=== PATIENT | female | born 1965 | race Caucasian/White ===

== ENCOUNTER 2016-09-12 10:49 | Day surgery (SDC) | payer MEDICAID ==
[~2016-09-12] VITALS: Ht 157.5 cm; Wt 74.5 kg
[2016-09-12] MEDS ORDERED: ADDERALL 20 MG20 M1 PO (11:43)
[2016-09-12] MEDS ORDERED: ADDERALL 15 MG15 MG PO (11:44)
[2016-09-12] MEDS ORDERED: LAMICTAL200 MG PO (11:44)
[2016-09-12] MEDS ORDERED: TOPAMAX200 MG PO (11:45)
[2016-09-12] MEDS ORDERED: TOPAMAX100 MG PO (11:45)
[2016-09-12] MEDS ORDERED: HYDROXYZINE HCL50 MG PO (11:45)
[2016-09-12] MEDS ORDERED: VALIUM10 MG PO (11:46)
[2016-09-12] MEDS ORDERED: OMEPRAZOLE20 M1 PO (11:47)
[2016-09-12] MEDS ORDERED: ALLER-CHLOR4 MG PO (11:48)
[2016-09-12] MEDS ORDERED: DYAZIDE 37.5/251 CAP PO (11:50)
[2016-09-12] MEDS ORDERED: HYDROCODON-ACE1 EAC7 PO (11:51)
[2016-09-12] MEDS ORDERED: SOMA350 MG PO (11:52)
[2016-09-12 12:11] VITALS: BP 92/58; Ht 157.5 cm; Wt 74.5 kg
[2016-09-12 12:28] LABS: BASOPHILS 0.3 % (0.0-2.0); EOSINOPHILS 2.8 % (0-7); HEMATOCRIT 38.7 % (36.0-48.0); HEMOGLOBIN 13.4 g/dL (12-16); LYMPHOCYTES 42.2 % (15-50); MCH 29.9 pg (26.0-34.0); MCHC 34.6 g/dL (31.0-37.0); MCV 86.4 fL (80.0-100.0); MEAN PLATELET VOLUME 9.4 fL (7.4-10.4); MONOCYTES 5.9 % (2-11); NEUTROPHILS 48.8 % (40-80); PLATELET COUNT 148 10x3/uL (130-400); RBC 4.48 10x6/uL (4.00-5.40); RDW 13.3 % (11.5-14.5); WBC 3.9 10x3/uL (4.8-10.8)
[2016-09-12 12:44] LABS: CALC OSMOLALITY 285 mosm/kg (275-300); CALCIUM 8.6 mg/dL (8.5-10.1); CARBON DIOXIDE 24.7 mmol/L (21.0-32.0); CHLORIDE - SERUM 107 mmol/L (98-107); CREATININE - SERUM 0.8 mg/dL (0.6-1.3); GLUCOSE 117 mg/dL (74-106); POTASSIUM - SERUM 3.5 mmol/L (3.5-5.1); SODIUM 142 mmol/L (136-145); UREA NITROGEN 18 mg/dL (7-18); eGFR NON AFRICAN AMERICAN 81 mL/min (90-120)
--- NOTE | 2016-09-12 14:31 | NUR ---
1405- IV D/C'D, PT TOLERATED. CATHETER INTACT. 1420- DISCHARGE INSTRUCTIONS COMPLETED, PT VERBALIZES UNDERSTANDING. PAPERWORK SIGNED 1425- DISCHARGED WITH [facility] VIA WHEELCHAIR
--- NOTE | 2016-09-17 10:50 | OP ---
PATIENT NAME: PRABHU BRUNO MEDICAL RECORD: [id number] :67 LOCATION:[facility] ADMISSION DATE: SURGEON: JENNIFER WALTON DO DATE OF OPERATION: 09/12/2016 PROCEDURE: EGD with biopsies. SCOPE: Fontself video gastroscope. MEDICATIONS: Propofol 200 mg IV per anesthesia. INDICATIONS FOR PROCEDURE: Epigastric abdominal pain, dysphagia, nausea, pain provoked by eating. FINDINGS: Informed consent was given. The patient was made comfortable with the above medication. After reaching an adequate level of sedation by slow IV push, the patient was placed on her left side. The endoscope was then advanced under direct visualization through the mouth to the second portion of the duodenum. In the proximal third of the esophagus, there was an approximately 8 mm size patch of ectopic gastric mucosa. Biopsies were performed to confirm this diagnosis. The middle third of the esophagus appeared normal. The distal third of the esophagus appeared normal, but just superior to the GE junction. There was some mucosa that had a nodular appearance. Two cold forcep biopsies were performed to send for histology. At the GE junction, there was evidence of mild LA class A reflux induced esophagitis. The scope was advanced into the stomach and retroflexed to view the cardia, where a small sliding hiatal hernia was present. In the fundus, there was evidence of a single layer erosion which appeared like it had oozed blood recently. The body of the stomach appeared normal as well as the antrum and prepyloric region. The scope was advanced through the pylorus into the duodenum where there was some erythema present in the duodenum consistent with duodenitis. Random biopsies were performed in the bulb and second portion of the duodenum. Scope was then withdrawn back into the stomach where random gastric biopsies were taken to rule out H. pylori and to sent for histology. Scope was then withdrawn from the patient. The patient tolerated the procedure well and there were no complications. ESTIMATED BLOOD LOSS: Less than 5 cc. IMPRESSION: 1. 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 2. Nodular mucosa just superior to the gastroesophageal junction, which was biopsied. 3. Reflux esophagitis grade A. 4. Cecal gastric erosions. 5. Duodenitis biopsy. PLAN AND RECOMMENDATIONS: 1. Discharge home when recovery parameters are met. 2. Continue current medications. 3. Gastroesophageal reflux diet and reflux precautions. 4. Schedule a barium esophagram regarding ongoing dysphagia as well as the gastric emptying study regarding the pain with eating and nausea in the setting of diabetes. 5. Await biopsy specimen results and followup in the clinic as needed. OPERATIVE REPORT [id number] PRABHU BRUNO TRANSINT:[id number] Voice Confirmation ID: [id number] DOCUMENT ID: [id number] JENNIFER WALTON DO at 1050 CC: [id number] DICTATION DATE: 09/12/16 1309 EYELET ROW MARKER: 09/12/16 1508 [facility] 09/12/[address] [facility] [address] [place] [address]
== END 2016-09-12 14:25 | disposition home or self-care (01) ==
LOC: D.OPS 10:49
PROVIDERS: Anesthesiology
DX: R10.13 Epigastric pain (principal); R13.10 Dysphagia, unspecified; R11.0 Nausea; J44.9 Chronic obstructive pulmonary disease, unspecified; K21.9 Gastro-esophageal reflux disease without esophagitis; G47.30 Sleep apnea, unspecified; E11.9 Type 2 diabetes mellitus without complications; I10 Essential (primary) hypertension

== ENCOUNTER 2017-08-25 12:58 | Day surgery (SDC) | payer MEDICAID ==
[~2017-08-25] VITALS: Ht 157.5 cm; Wt 84.1 kg
--- NOTE | ~2017-08-25 | OP ---
PATIENT NAME: PRABHU BRUNO MEDICAL RECORD: [id number] :67 LOCATION:[facility] ADMISSION DATE: SURGEON: JENNIFER WALTON DO DATE OF OPERATION: 08/25/2017 PROCEDURE: EGD with biopsies. INDICATIONS FOR PROCEDURE: Epigastric pain, dysphagia, nausea, altered bowel function. SCOPE: Olympus video gastroscope. MEDICATIONS: Propofol IV per anesthesia. ESTIMATED BLOOD LOSS: Minimal. COMPLICATIONS: None. FINDINGS: Informed consent was given. The patient was made comfortable with the above medication. After reaching an adequate level of sedation by slow IV push, the patient was placed on her left side. The endoscope was advanced under direct visualization through the mouth to the second portion of the duodenum. In the proximal third of the esophagus, there was a small patch of ectopic gastric mucosa visualized. This was previously biopsied within the past year. The middle and distal thirds of the esophagus appeared normal. At the GE junction, there was evidence of mild, LA class A reflux-induced esophagitis. The endoscope was advanced beyond the GE junction and retroflexed to view the cardia, which appeared normal. The fundus was normal other than the presence of a few fundic gland type benign polyps. In the body and antrum of the stomach, there were a few superficial erosions which were oozing some blood upon washing. Random biopsies were taken in the stomach to rule out H. pylori and to submit for histology. The endoscope was advanced beyond the pylorus into the duodenum where the bulb and second portion of the duodenum appeared normal. The endoscope was then withdrawn from the patient. The patient tolerated the procedure well and there were no complications. IMPRESSION: 1. Ectopic gastric mucosa in the proximal third of the esophagus. 2. LA class A reflux-induced esophagitis. 3. Gastritis and gastric erosions. 4. Benign appearing fundic gland gastric polyps. PLAN AND RECOMMENDATIONS: 1. Discharge home when recovery parameters are met. 2. Follow up biopsy specimen results. 3. Continue current medications including PPI in the a.m. and antihistamine block in the evening. 4. GERD diet and reflux precautions. 5. Barium esophagram regarding ongoing dysphagia. 6. If not already completed, consider gastric emptying study regarding the abdominal pain and nausea. 7. Consider manometry study pending results of Barium swallow. TRANSINT:[id number] Voice Confirmation ID: [id number] DOCUMENT ID: [id number] OPERATIVE REPORT [id number] PRABHU BRUNO NATHAN A DO at 1135 CC: [id number] DICTATION DATE: 08/25/17 1507 REGISTERED APPRAISER: 08/25/17 1531 [facility] 08/25/17 [place] [id number] [place] [id number]
[~2017-08-25 12:58] MED LIST: ADDERALL 15 MG15 MG PO; ADDERALL 20 MG20 M1 PO; ALLER-CHLOR4 MG PO; DYAZIDE 37.5/251 CAP PO; HYDROCODON-ACE1 EAC7 PO; HYDROXYZINE HCL50 MG PO; LAMICTAL200 MG PO; OMEPRAZOLE20 M1 PO; SOMA350 MG PO; TOPAMAX100 MG PO; TOPAMAX200 MG PO; VALIUM10 MG PO
[2017-08-25] MEDS ORDERED: FUROSEMIDE20 MG PO (13:17)
[2017-08-25] MEDS ORDERED: BENZONATATE200 MG (13:18)
[2017-08-25] MEDS ORDERED: FORTAMET1000 MG/BO PO (13:18)
[2017-08-25] MEDS ORDERED: PROZAC20 MG PO (13:19)
[2017-08-25] MEDS ORDERED: ZANTAC150 MG (13:19)
[2017-08-25 13:32] VITALS: BP 142/83; Ht 157.5 cm; Wt 84.1 kg
[2017-08-25 13:37] LABS: HEMOGLOBIN 14.1 g/dL (12-16); MCH 28.5 pg (26.0-34.0); MCHC 34.4 g/dL (31.0-37.0); MEAN PLATELET VOLUME 9.1 fL (7.4-10.4); RBC 4.94 10x6/uL (4.00-5.40); RDW 13.5 % (11.5-14.5); WBC 5.3 10x3/uL (4.8-10.8)
[2017-08-25 13:38] LABS: ANION GAP 14.6 mmol/L (8-16); CALCIUM 8.5 mg/dL (8.5-10.1); CARBON DIOXIDE 21.4 mmol/L (21.0-32.0); CREATININE - SERUM 0.9 mg/dL (0.6-1.3)
== END 2017-08-25 15:55 | disposition home or self-care (01) ==
LOC: D.OPS 12:58
PROVIDERS: Anesthesiology
DX: R10.13 Epigastric pain (principal); R13.10 Dysphagia, unspecified; K21.0 Gastro-esophageal reflux disease with esophagitis; K29.70 Gastritis, unspecified, without bleeding; R19.4 Change in bowel habit; Z01.812 Encounter for preprocedural laboratory examination; E11.9 Type 2 diabetes mellitus without complications

== ENCOUNTER → 2017-08-27 10:26 | Outpatient (CLI) | payer MEDICAID ==
[2017-08-25 13:32] VITALS: BMI 33.9
[~2017-08-27 10:26] MED LIST changes: +BENZONATATE200 MG; +FORTAMET1000 MG/BO PO; +FUROSEMIDE20 MG PO; +PROZAC20 MG PO; +ZANTAC150 MG
== END | disposition home or self-care (01) ==
LOC: D.RAD 10:26
DX: R13.10 Dysphagia, unspecified (principal)

== ENCOUNTER 2018-04-01 09:02 | Day surgery (SDC) | payer MEDICAID ==
[~2018-04-01] VITALS: Ht 157.5 cm; Wt 73.6 kg
--- NOTE | ~2018-04-01 | OP ---
PATIENT NAME: PRABHU BRUNO MEDICAL RECORD: [id number] :67 LOCATION:[facility] ADMISSION DATE: SURGEON: JENNIFER WALTON DO DATE OF OPERATION: 04/01/2018 PROCEDURE: EGD with biopsies. INDICATIONS FOR PROCEDURE: Pain in throat and epigastric abdominal pain. SCOPE: Olympus video gastroscope. MEDICATIONS: Propofol IV per anesthesia. ESTIMATED BLOOD LOSS: None. COMPLICATIONS: None. FINDINGS: Informed consent was given. The patient was made comfortable with the above medication. After reaching an adequate level of sedation by slow IV push, the patient was placed on her left side. The endoscope was advanced under direct visualization through the mouth, to the second portion of the duodenum. The upper, middle, and lower thirds of the esophagus was normal other than some ectopic gastric mucosa in the proximal third of the esophagus. At the GE junction, there was some LA class A reflux-induced esophagitis noted. There were no ulcers or other abnormalities. The endoscope was advanced beyond the GE junction into the stomach and retroflexed view the cardia, where a very small sliding hiatal hernia was present. Throughout the fundus and body of the stomach, there were a few benign appearing fundic gland type gastric polyps present. No biopsies were taken on today's examination. In the antrum and prepyloric region, there was some erythema and granularity and some friability of the mucosa consistent with gastritis. The endoscope was advanced beyond the pylorus into the duodenum where the bulb, first portion, and second portion of the duodenum appeared normal. The endoscope was then withdrawn from the patient. The patient tolerated the procedure well and there were no complications. IMPRESSION: 1. Ectopic gastric mucosa in the proximal esophagus. 2. LA class A reflux-induced esophagitis. 3. Small sliding hiatal hernia. 4. Gastritis. 5. Benign appearing fundic gland polyps. PLAN AND RECOMMENDATIONS: 1. Discharge home when recovery parameters are met. 2. Continue current medications including Nexium 40 mg daily in the a.m. and Zantac 150-300 mg in the p.m. 3. Add Carafate suspension 1 gram/10 mL p.o. t.i.d. to see if this helps symptoms. 4. If this does not improve symptoms, can consider Kothari study or pH impedance study to confirm continued reflux and if there is continued reflux in spite of maximum medical therapy, can consider referral for surgical opinion of antireflux procedure. TRANSINT:[id number] Voice Confirmation ID: [id number] DOCUMENT ID: [id number] OPERATIVE REPORT [id number] PRABHU BRUNO NATHAN A DO at 1300 CC: [id number] DICTATION DATE: 04/01/18 1147 PHLEBOTOMY DIRECTOR: 04/01/18 1203 [facility] [place] [id number] [place] [id number]
[2018-04-01 09:22] LABS: HEMATOCRIT 39.2 % (36.0-48.0); HEMOGLOBIN 13.7 g/dL (12-16); MCH 29.1 pg (26.0-34.0); MCHC 34.9 g/dL (31.0-37.0); MCV 83.4 fL (80.0-100.0); MEAN PLATELET VOLUME 8.9 fL (7.4-10.4); RBC 4.7 10x6/uL (4.00-5.40); RDW 13.4 % (11.5-14.5)
[2018-04-01 09:32] LABS: CALC OSMOLALITY 286 mosm/kg (275-300); CALCIUM 8.9 mg/dL (8.5-10.1); CARBON DIOXIDE 24.6 mmol/L (21.0-32.0); CHLORIDE - SERUM 106 mmol/L (98-107); CREATININE - SERUM 0.8 mg/dL (0.6-1.3); GLUCOSE 276 mg/dL (74-106); POTASSIUM - SERUM 3.9 mmol/L (3.5-5.1); SODIUM 139 mmol/L (136-145); UREA NITROGEN 11 mg/dL (7-18); eGFR NON AFRICAN AMERICAN 80 mL/min (90-120)
[2018-04-01] MEDS ORDERED: SYMBICORT 16010.2 GM INH (10:18)
[2018-04-01] MEDS ORDERED: CYCLOBENZAPRINE10 MG PO (10:19)
[2018-04-01] MEDS ORDERED: FLUTICASONE PRO16 GM (10:20)
[2018-04-01] MEDS ORDERED: NEXIUM20 MG (10:20)
[2018-04-01 10:35] VITALS: Ht 157.5 cm; Wt 73.6 kg
== END 2018-04-01 13:03 | disposition home or self-care (01) ==
LOC: D.OPS 09:02
PROVIDERS: Anesthesiology
DX: K21.0 Gastro-esophageal reflux disease with esophagitis (principal); K44.9 Diaphragmatic hernia without obstruction or gangrene; K29.70 Gastritis, unspecified, without bleeding; K31.7 Polyp of stomach and duodenum; Z01.812 Encounter for preprocedural laboratory examination

== ENCOUNTER 2018-05-14 09:27 | Outpatient (CLI) | payer MEDICAID ==
[~2018-05-14 09:27] MED LIST changes: +CYCLOBENZAPRINE10 MG PO; +FLUTICASONE PRO16 GM; +NEXIUM20 MG; +SYMBICORT 16010.2 GM INH
== END 2018-05-14 11:20 ==
LOC: D.OPS 09:27
PROVIDERS: Orthopaedic Surgery
DX: K21.9 Gastro-esophageal reflux disease without esophagitis (principal); Z01.812 Encounter for preprocedural laboratory examination

== ENCOUNTER → 2018-07-01 19:10 | Outpatient (CLI) | payer MEDICAID ==
[~2018-07-01 19:10] MED LIST changes: -BENZONATATE200 MG; +BUSPAR10 MG PO; +LAMICTAL100 MG PO; -LAMICTAL200 MG PO; +TESSALON PERLE100 MG PO; -VALIUM10 MG PO; +VALIUM5 MG PO; +VISTARIL50 MG PO
== END | disposition home or self-care (01) ==
LOC: D.LABREF 19:10
DX: R31.9 Hematuria, unspecified (principal)

== ENCOUNTER → 2018-07-08 13:37 | Outpatient (CLI) | payer MEDICAID | END | disposition home or self-care (01) | LOC: D.CT 13:37 | DX: R31.21 Asymptomatic microscopic hematuria (principal) ==

== ENCOUNTER 2018-07-23 05:53 | Day surgery (SDC) | payer MEDICAID ==
[2018-07-21 16:02] LABS: BASOPHILS 0.2 % (0-2); EOSINOPHILS 2.6 % (0-7); HEMATOCRIT 43.5 % (36.0-48.0); HEMOGLOBIN 15.7 g/dL (12-16); IMMATURE GRANULOCYTES 0.1 % (0-5); LYMPHOCYTES 27.1 % (15-50); MCH 29.6 pg (26.0-34.0); MCHC 36.1 g/dL (31.0-37.0); MCV 81.9 fL (80.0-100.0); MEAN PLATELET VOLUME 9.6 fL (7.4-10.4); MONOCYTES 5.3 % (2-11); NEUTROPHILS 64.7 % (40-80); RBC 5.31 10x6/uL (4.00-5.40); RDW 13.3 % (11.5-14.5); WBC 8.2 10x3/uL (4.8-10.8)
[2018-07-21 16:03] LABS: PLATELET COUNT 182 10x3/uL (130-400)
[2018-07-21 16:30] LABS: APTT 26.5 SECONDS (22.8-39.4); INR 1.04 (0.85-1.17); PROTIME 13.1 SECONDS (11.6-15.0)
[2018-07-22 08:31] LABS: CALC OSMOLALITY 292 mosm/kg (275-300); CALCIUM 8.7 mg/dL (8.5-10.1); CARBON DIOXIDE 23.4 mmol/L (21.0-32.0); CHLORIDE - SERUM 104 mmol/L (98-107); CREATININE - SERUM 0.8 mg/dL (0.6-1.3); POTASSIUM - SERUM 4.1 mmol/L (3.5-5.1); SODIUM 139 mmol/L (136-145); UREA NITROGEN 11 mg/dL (7-18); eGFR NON AFRICAN AMERICAN 80 mL/min (90-120)
[2018-07-22 08:34] LABS: GLUCOSE 393 mg/dL (74-106)
[~2018-07-23] VITALS: Ht 157.5 cm; Wt 74.8 kg
--- NOTE | 2018-07-23 06:15 | NUR ---
FSBS 431. ANESTHESIA CALLED AND LAB ORDERED TO CONFIRM BS.
--- NOTE | 2018-07-23 06:30 | NUR ---
BLOOD SUGAR PER LAB 461.
[2018-07-23 06:55] VITALS: BP 130/75; Ht 157.5 cm; Wt 74.8 kg
--- NOTE | 2018-07-23 07:26 | NUR ---
HUMULIN 10 UNITS IV ADMINISTERED PER ORDERS.
--- NOTE | 2018-07-23 07:50 | NUR ---
FSBS 398 AFTER INSULIN.
--- NOTE | 2018-07-23 09:00 | NUR ---
REC'D FROM SURGERY. FAMILY AT BEDSIDE. WANTING TO URINATE HOWEVER EXPLAINED SHE NEEDS TO HOLD THE RIMSO FOR 15 MINUTES. VERBALIZED UNDERSTANDING. ICE WATER BROUGHT TO PT. ENCOURAGING TO TURN FROM SIDE TO SIDE.
--- NOTE | 2018-07-23 09:30 | NUR ---
FL TRAY SERVED. AMBULATED TO BATHROOM AND VOIDED WITHOUT DIFFICULTY. FAMILY AT BEDSIDE.
--- NOTE | 2018-07-23 09:42 | OP ---
PATIENT NAME: PRABHU BRUNO MEDICAL RECORD: [id number] :69 LOCATION:D.OPS ADMISSION DATE: SURGEON: IVETTE PAZ MD DATE OF OPERATION: 07/23/2018 SURGEON: Ivette Paz MD ANESTHESIA: TIVA by Panfilo Bolaños CRNA DIAGNOSES: Microscopic hematuria, interstitial cystitis. PROCEDURES: Cystoscopy, hydrodistention of the bladder, intravesical Rimso instillation. FINDINGS: Single ureteral orifices bilaterally. No mesh graft erosion, no bladder tumors. Diffusely inflamed bladder. SPECIMENS: None. BLOOD LOSS: None. CLINICAL HISTORY: This is a 53-year-old female, G3, P3, A0 who had a pubovaginal sling placed [address] Nev[address]. She was later informed that this was a Luis [employer] Luis [employer] mesh sling and she initially saw me to have this sling removed. She does have a history of bipolar disorder as well as attention deficit disorder. She has attempted to kill herself with 3 suicide attempts, which were unsuccessful. She also has a history of cervical cancer treated by LEEP and hysterectomy in 2004. She also has developed recurrent vaginal bleeding recently and her industrial economics professor is investigating this. She has urinary frequency and urge incontinence. I examined her in the office with the speculum, I did not see any graft extrusion into the vagina. The anterior vaginal wall was intact. The urinalysis was positive for glucose. There was also trace microscopic hematuria. She had a full workup for this. This included a CT scan of the abdomen and pelvis. This shows a left nonobstructive 3-mm renal stone. No renal masses or hydronephrosis was seen. She had a urine cytology, which showed no tumor cells. Her symptoms of frequency and bladder and pelvic pain are suggestive of interstitial cystitis as well as glycosuria from her uncontrolled diabetes. Today, she is having cystoscopy. If we find bladder inflammation consistent with interstitial cystitis, then she will have hydrodistention of the bladder and placement of intravesical Rimso. SHE IS ALLERGIC TO CLARITIN, GEODON, WELLBUTRIN, RITALIN, LIPITOR, GABAPENTIN, SKELAXIN, ACETAMINOPHEN, BUPROPION, BUTABARBITAL AND CAFFEINE. She was given Ancef urgent care nurse practitioner to the OR. DESCRIPTION OF PROCEDURE: The patient was given IV sedation. She was then placed in the dorsal lithotomy position and prepped and draped. She has a urethral stenosis which made placement of a 21-Malagasy scope difficult. I used sounds to dilate her to 20-Malagasy. Then, we used a 17-Malagasy cystoscope for visualization with a 30-degree lens. No graft erosion was seen at all. She has diffuse bladder inflammation consistent with interstitial cystitis. The bladder was then filled to 500 mL for hydrodistention. This was held for about a minute and then the bladder was completely emptied through the cystoscope sheath. The scope was then removed. We introduced a 16-Malagasy red rubber catheter and instilled 50 mL of intravesical Rimso solution. Once the medication was in the bladder, the catheter was removed, leaving the medication in the bladder. She OPERATIVE REPORT [id number] PRABHU BRUNO will hold it for 15 minutes and then void it out. She will be seen in followup in 2 weeks' time for repeat Rimso instillation if needed. TRANSINT:[id number] Voice Confirmation ID: [id number] DOCUMENT ID: [id number] IVETTE PAZ MD at 0942 CC: [id number] DICTATION DATE: 07/23/18900 BUSINESS OFFICE MANAGER: 07/23/18 0936 [facility] [address] [place] [address]
--- NOTE | 2018-07-23 10:00 | NUR ---
TOLERATED FL TRAY. VOIDING WITHOUR DIFFICULTY. IV DC'D WITH CATHETER INTACT.
--- NOTE | 2018-07-23 10:05 | NUR ---
WRITTEN AND VERBAL DC INST. GIVEN TO PT. VERBALIZED UNDERSTANDING.
--- NOTE | 2018-07-23 10:30 | NUR ---
DC'D HOME WITH FAMILY VIA PRIVATE VEHICLE. TAKEN TO VEHICLE VIA WC. STABLE AT TIME OF DC.
== END 2018-07-23 10:30 | disposition home or self-care (01) ==
LOC: D.OPS 05:53 → D.PAN 07:30 → D.OPS 07:30 → D.PAN 08:10 → D.OPS 08:35
PROVIDERS: Anesthesiology
DX: R31.29 Other microscopic hematuria (principal); N30.11 Interstitial cystitis (chronic) with hematuria; N20.0 Calculus of kidney; R81 Glycosuria; E11.65 Type 2 diabetes mellitus with hyperglycemia; Z88.6 Allergy status to analgesic agent; Z88.8 Allergy status to other drugs, medicaments and biological substances; Z01.812 Encounter for preprocedural laboratory examination

== ENCOUNTER 2018-08-11 16:13 | Emergency (ER) | payer MEDICAID ==
[~2018-08-11] VITALS: Ht 157.5 cm; Wt 72.3 kg
[2018-08-11 16:16] VITALS: Ht 157.5 cm; Wt 72.3 kg
[2018-08-11 16:57] LABS: BASOPHILS 0.1 % (0-2); EOSINOPHILS 2.5 % (0-7); HEMATOCRIT 45.4 % (36.0-48.0); HEMOGLOBIN 16.3 g/dL (12-16); IMMATURE GRANULOCYTES 0.1 % (0-5); LYMPHOCYTES 28.9 % (15-50); MCH 29.9 pg (26.0-34.0); MCHC 35.9 g/dL (31.0-37.0); MCV 83.2 fL (80.0-100.0); MEAN PLATELET VOLUME 9.6 fL (7.4-10.4); MONOCYTES 4.2 % (2-11); NEUTROPHILS 64.2 % (40-80); PLATELET COUNT 178 10x3/uL (130-400); RBC 5.46 10x6/uL (4.00-5.40); RDW 13.1 % (11.5-14.5)
[2018-08-11 17:14] LABS: ANION GAP 13.5 mmol/L (8-16); CALCIUM 9.4 mg/dL (8.5-10.1); CARBON DIOXIDE 26.4 mmol/L (21.0-32.0); POTASSIUM - SERUM 3.9 mmol/L (3.5-5.1)
[2018-08-11 17:38] LABS: APPEARANCE CLEAR (CLEAR); BILIRUBIN NEGATIVE (NEGATIVE); COLOR YELLOW (YELLOW); GLUCOSE 1000 mg/dL (NEGATIVE); KETONE NEGATIVE (NEGATIVE); NITRITE NEGATIVE (NEGATIVE); PROTEIN NEGATIVE (NEGATIVE); UROBILINOGEN NORMAL (NORMAL)
[2018-08-11] MEDS ORDERED: VIBRAMYCIN 100100 MG PO (19:44)
[2018-08-11] MEDS ORDERED: PHENERGAN DM SYR5 ML PO (19:44)
[2018-08-11 21:17] VITALS: BP 135/75
== END 2018-08-11 21:18 | disposition home or self-care (01) ==
LOC: D.ER 16:13
PROVIDERS: Family Medicine
DX: J06.9 Acute upper respiratory infection, unspecified (principal); E11.65 Type 2 diabetes mellitus with hyperglycemia; R68.83 Chills (without fever); R07.9 Chest pain, unspecified

== ENCOUNTER → 2018-10-09 11:45 | Outpatient (CLI) | payer MEDICAID ==
[2018-08-11 16:16] VITALS: BMI 29.1
[~2018-10-09 11:45] MED LIST changes: +PHENERGAN DM SYR5 ML PO; +VIBRAMYCIN 100100 MG PO
[2018-10-09 12:45] LABS: AMYLASE - SERUM 88 U/L (25-115); LIPASE 132 U/L (73-393)
== END | disposition home or self-care (01) ==
LOC: D.LAB 11:45
PROVIDERS: ATTEND Internal Medicine Gastroenterology
DX: R10.84 Generalized abdominal pain (principal); R19.5 Other fecal abnormalities; R11.2 Nausea with vomiting, unspecified; K21.9 Gastro-esophageal reflux disease without esophagitis

== ENCOUNTER 2018-11-29 20:10 | Emergency (ER) | payer MEDICAID ==
[~2018-11-29] VITALS: Ht 157.5 cm; Wt 74.4 kg
[2018-11-29 20:13] VITALS: Ht 157.5 cm; Wt 74.4 kg
[2018-11-29 21:00] LABS: BASOPHILS 0.1 % (0-2); EOSINOPHILS 2.1 % (0-7); HEMATOCRIT 41.2 % (36.0-48.0); HEMOGLOBIN 14.4 g/dL (12-16); IMMATURE GRANULOCYTES 0.1 % (0-5); LYMPHOCYTES 32.5 % (15-50); MCH 29.6 pg (26.0-34.0); MCV 84.8 fL (80.0-100.0); MEAN PLATELET VOLUME 8.7 fL (7.4-10.4); MONOCYTES 5.8 % (2-11); NEUTROPHILS 59.4 % (40-80); PLATELET COUNT 163 10x3/uL (130-400); RBC 4.86 10x6/uL (4.00-5.40); RDW 13.4 % (11.5-14.5); WBC 7.6 10x3/uL (4.8-10.8)
[2018-11-29 21:11] LABS: UDS - AMPHET NEGATIVE QUAL (NEGATIVE); UDS - BARB NEGATIVE QUAL (NEGATIVE); UDS - BENZO POSITIVE QUAL (NEGATIVE); UDS - COCAINE NEGATIVE QUAL (NEGATIVE); UDS - OPIATE NEGATIVE QUAL (NEGATIVE); UDS - PCP NEGATIVE QUAL (NEGATIVE); UDS - THC NEGATIVE QUAL (NEGATIVE)
[2018-11-29 21:18] LABS: APPEARANCE SL CLDY (CLEAR); COLOR YELLOW (YELLOW)
[2018-11-29 21:19] LABS: BILIRUBIN NEGATIVE (NEGATIVE); GLUCOSE NEGATIVE (NEGATIVE); KETONE NEGATIVE (NEGATIVE); NITRITE NEGATIVE (NEGATIVE); PROTEIN NEGATIVE (NEGATIVE); UROBILINOGEN NORMAL (NORMAL)
[2018-11-29 21:24] LABS: ALBUMIN 3.6 g/dL (3.4-5.0); ANION GAP 12.9 mmol/L (8-16); BILIRUBIN - TOTAL 0.34 mg/dL (0.2-1.3); CALCIUM 8.9 mg/dL (8.5-10.1); CARBON DIOXIDE 25.8 mmol/L (21.0-32.0); POTASSIUM - SERUM 3.7 mmol/L (3.5-5.1); PROTEIN - SERUM 7.4 g/dL (6.4-8.2)
[2018-11-29] MEDS ORDERED: MIRALAX17 GM PO (22:34)
[2018-11-29 23:09] VITALS: BP 122/75
== END 2018-11-29 23:09 | disposition home or self-care (01) ==
LOC: D.ER 20:10
PROVIDERS: Family Medicine
DX: R10.9 Unspecified abdominal pain (principal); M54.31 Sciatica, right side

== ENCOUNTER 2018-12-29 12:26 | Emergency (ER) | payer MEDICAID ==
[~2018-12-29] VITALS: Ht 157.5 cm; Wt 73.2 kg
[~2018-12-29 12:26] MED LIST changes: +MIRALAX17 GM PO
[2018-12-29 12:32] VITALS: Ht 157.5 cm; Wt 73.2 kg
[2018-12-29] MEDS ORDERED: GLUCOPHAGE500 MG PO (12:37)
[2018-12-29] MEDS ORDERED: LANTUS SOL100 UNIT/1 SC (12:37)
[2018-12-29] MEDS ORDERED: VICTOZA0.6 MG/0.1 SQ (12:38)
[2018-12-29] MEDS ORDERED: VOLTAREN75 MG PO (16:52)
[2018-12-29] MEDS ORDERED: BACLOFEN20 M1 PO (16:52)
[2018-12-29 19:01] VITALS: BP 108/84
== END 2018-12-29 19:01 | disposition home or self-care (01) ==
LOC: D.ER 12:26
DX: M54.5 Low back pain (principal)

== ENCOUNTER → 2019-01-06 07:37 | Outpatient (CLI) | payer MEDICAID ==
[2018-12-29 12:32] VITALS: BMI 29.5
[~2019-01-06 07:37] MED LIST changes: +BACLOFEN20 M1 PO; +GLUCOPHAGE500 MG PO; +LANTUS SOL100 UNIT/1 SC; +VICTOZA0.6 MG/0.1 SQ; +VOLTAREN75 MG PO
[2019-01-06 08:31] LABS: ALBUMIN 3.8 g/dL (3.4-5.0); BILIRUBIN - DIRECT 0.09 mg/dL (0.00-0.30); BILIRUBIN - INDIRECT 0.51 mg/dL (0.00-1.00); BILIRUBIN - TOTAL 0.6 mg/dL (0.2-1.3); PROTEIN - SERUM 7.6 g/dL (6.4-8.2)
== END | disposition home or self-care (01) ==
LOC: D.US 07:37
PROVIDERS: ATTEND Internal Medicine Gastroenterology
DX: K76.0 Fatty (change of) liver, not elsewhere classified (principal)

== ENCOUNTER 2019-01-11 06:26 | Day surgery (SDC) | payer MEDICAID ==
[~2019-01-11] VITALS: Ht 157.5 cm; Wt 72.7 kg
[2019-01-11 06:47] LABS: HEMATOCRIT 37.7 % (36.0-48.0); HEMOGLOBIN 13.5 g/dL (12-16); MCH 29.2 pg (26.0-34.0); MCHC 35.8 g/dL (31.0-37.0); MCV 81.6 fL (80.0-100.0); MEAN PLATELET VOLUME 9.2 fL (7.4-10.4); PLATELET COUNT 174 10x3/uL (130-400); RBC 4.62 10x6/uL (4.00-5.40); RDW 13.2 % (11.5-14.5); WBC 5.6 10x3/uL (4.8-10.8)
[2019-01-11 06:59] LABS: CALC OSMOLALITY 283 mosm/kg (275-300); CALCIUM 8.8 mg/dL (8.5-10.1); CARBON DIOXIDE 21.3 mmol/L (21.0-32.0); CHLORIDE - SERUM 108 mmol/L (98-107); CREATININE - SERUM 0.8 mg/dL (0.6-1.3); POTASSIUM - SERUM 3.6 mmol/L (3.5-5.1); SODIUM 141 mmol/L (136-145); UREA NITROGEN 4 mg/dL (7-18); eGFR NON AFRICAN AMERICAN 80 mL/min (90-120)
[2019-01-11 07:03] LABS: GLUCOSE 198 mg/dL (74-106)
[2019-01-11] MEDS ORDERED: ZOFRAN ODT4 MG/UDTAB PO (07:20)
[2019-01-11 07:23] VITALS: BP 114/85; Ht 157.5 cm; Wt 72.7 kg
[2019-01-11 08:38] LABS: EOSINOPHILS 3 % (0-7); LYMPHOCYTES 32 % (15-50); MONOCYTES 8 % (2-11); NEUTROPHILS 57 % (40-80); PLATELET ESTIMATE NORMAL
--- NOTE | 2019-01-11 08:46 | NUR ---
DR. GARCIA NOTIIFED AND REVIEWED PT'S BEHAVIOR AND ASSESSMENT RESULTS. PT IS A LOW RISK PER DR. GARCIA. DR. GARCIA STATED TO GIVE RESOURCES TO PT AT TIME OF DISCHARGE. NO FURTHER ORDERS AT THIS TIME. RESOURCES REVIEWED WITH PT AND SHE VERBALIZED UNDERSTANDING.
--- NOTE | 2019-01-11 10:01 | NUR ---
DC INSTRUCTIONS GIVEN TO PT/FAMILY. STATE UNDERSTANDING. DC'D IV CATH FULLY INTACT.
--- NOTE | 2019-01-11 10:41 | NUR ---
I WALKED W/ PT TO OUTPATIENT [facility]ILL[facility] (REFUSED WC) AT 1033 PICKED PT UP FROM [place].
--- NOTE | 2019-01-11 20:17 | OP ---
PATIENT NAME: PRABHU BRUNO MEDICAL RECORD: [id number] :67 LOCATION:D.OPS ADMISSION DATE: SURGEON: JENNIFER WALTON DO DATE OF OPERATION: 01/11/2019 PROCEDURE: Colonoscopy with biopsies. INDICATIONS FOR PROCEDURE: Generalized abdominal pain, altered bowel function, history of diverticulosis. SCOPE: BluelightApp video pediatric colonoscope. MEDICATIONS: Versed 2 mg IV, fentanyl 200 mcg IV, propofol 400 mg IV per anesthesia. WITHDRAWAL TIME: 8 minutes. ESTIMATED BLOOD LOSS: Minimal. COMPLICATIONS: None. FINDINGS AND DESCRIPTION OF PROCEDURE: Informed consent was given. The patient was made comfortable with the above medication. After reaching an adequate level of sedation by slow IV push, the patient was placed on her left side. A digital rectal examination was performed and was normal. The endoscope was advanced under direct visualization through the rectum to the cecum, confirmed by the presence of the appendiceal orifice and ileocecal valve. The endoscope was slowly withdrawn. Mucosa was carefully examined. The prep quality was good. There were no polyps visualized on today's examination. There were a few small diverticula noted in the sigmoid colon without evidence of diverticulitis. Retroflexion was performed in the rectum with visualization of grade I internal hemorrhoids without active bleeding. Random biopsies were taken from normal mucosa throughout the colon to submit for histopathology and to rule out the presence of microscopic colitis. The endoscope was withdrawn from the patient. The patient tolerated the procedure well and there were no complications. IMPRESSION: 1. Mild diverticulosis of the sigmoid colon. 2. Grade I internal hemorrhoids without bleeding. PLAN AND RECOMMENDATIONS: 1. Discharge home when recovery parameters are met. 2. Follow up biopsy specimen results. 3. High fiber diet. 4. Continue current medications. 5. The patient's alternating bowel habits could be multiple factors that are contributing. She is on numerous medications, which could be playing a role in these changes. I do recommend trying to reduce her medication list to as little as possible and monitoring for change in symptoms. The patient should notify the GI clinic if symptoms worsen or fail to improve over time. 6. Recall colonoscopy in 10 years. TRANSINT:[id number] Voice Confirmation ID: [id number] DOCUMENT ID: [id number] OPERATIVE REPORT [id number] PRABHU BRUNO JENNIFER WALTON DO at 2017 CC: [id number] DICTATION DATE: 01/11/19921 JUNIOR WEB DESIGNER: 01/11/19 0955 [facility] [place] 01/11/19 [facility] [address] [place] [phone]
== END 2019-01-11 10:33 | disposition home or self-care (01) ==
LOC: D.OPS 06:26
PROVIDERS: Anesthesiology; ATTEND Internal Medicine Gastroenterology
DX: K57.30 Diverticulosis of large intestine without perforation or abscess without bleeding (principal); K64.0 First degree hemorrhoids; Z01.812 Encounter for preprocedural laboratory examination

== ENCOUNTER → 2019-02-05 11:12 | Outpatient (CLI) | payer MEDICAID ==
[2019-01-11 07:23] VITALS: BMI 29.3
[~2019-02-05 11:12] MED LIST changes: +ZOFRAN ODT4 MG/UDTAB PO
== END | disposition home or self-care (01) ==
LOC: D.RAD 11:12
PROVIDERS: ATTEND Urology
DX: N20.0 Calculus of kidney (principal)

== ENCOUNTER 2019-02-18 07:39 | Day surgery (SDC) | payer MEDICAID ==
[~2019-02-18] VITALS: Ht 157.5 cm; Wt 72.1 kg
[2019-02-18 08:02] LABS: BASOPHILS 0.2 % (0-2); EOSINOPHILS 4.5 % (0-7); HEMATOCRIT 38.7 % (36.0-48.0); HEMOGLOBIN 14.7 g/dL (12-16); IMMATURE GRANULOCYTES 0.2 % (0-5); MCV 81.6 fL (80.0-100.0); MEAN PLATELET VOLUME 9.4 fL (7.4-10.4); MONOCYTES 7.6 % (2-11); NEUTROPHILS 48.5 % (40-80); PLATELET COUNT 168 10x3/uL (130-400); RBC 4.74 10x6/uL (4.00-5.40); RDW 13.2 % (11.5-14.5); WBC 5.8 10x3/uL (4.8-10.8)
[2019-02-18 08:14] LABS: CALC OSMOLALITY 288 mosm/kg (275-300); CALCIUM 8.9 mg/dL (8.5-10.1); CARBON DIOXIDE 21.8 mmol/L (21.0-32.0); CHLORIDE - SERUM 106 mmol/L (98-107); CREATININE - SERUM 0.8 mg/dL (0.6-1.3); GLUCOSE 273 mg/dL (74-106); POTASSIUM - SERUM 3.8 mmol/L (3.5-5.1); SODIUM 140 mmol/L (136-145); UREA NITROGEN 12 mg/dL (7-18); eGFR NON AFRICAN AMERICAN 80 mL/min (90-120)
[2019-02-18 08:32] VITALS: BP 120/77; Ht 157.5 cm; Wt 72.1 kg
[2019-02-18 08:36] LABS: APTT 24.3 SECONDS (22.8-39.4); INR 1.07 (0.85-1.17); PROTIME 13.4 SECONDS (11.6-15.0)
--- NOTE | 2019-02-18 12:21 | OP ---
PATIENT NAME: PRABHU BRUNO MEDICAL RECORD: [id number] :69 LOCATION:[facility] ADMISSION DATE: SURGEON: IVETTE PAZ MD DATE OF OPERATION: 02/18/2019 SURGEON: Ivette Paz MD ANESTHESIA: General anesthesia by Matthew Russell. DIAGNOSIS: Three mm left lower pole renal stone. PROCEDURE: Left extracorporeal shock wave lithotripsy (ESWL) times 1000 shocks at power level 6. FINDINGS: Radiodense left renal stone. BLOOD LOSS: Minimal. CLINICAL HISTORY: This is a 53-year-old female, who has symptoms of suprapubic pain, urinary frequency, urge incontinence, and bilateral flank pain, which is worse with movement. She has a history of interstitial cystitis. I obtained a CT scan back in July of this year and it showed a nonobstructing 3 mm left renal stone without hydronephrosis. Fatty liver was also seen. She is still complaining of flank pain and she wants to have the stone treated to remove it. I do not think that this stone is causing her flank pain, but we will proceed with removal of the stone. She is allergic to multiple antibiotics and medications. However, she is not allergic to Ancef and she was given Ancef environmental health safety engineer to the OR. DESCRIPTION OF PROCEDURE: The patient was given induction of general anesthesia in supine position. She was placed on the treatment table. The stone was seen as a radiodensity. It was targeted in 2 planes. After 1000 shocks, it had fully disintegrated. We therefore stopped the procedure at that point. I will see her in followup in 2 weeks with a KUB. TRANSINT:[id number] Voice Confirmation ID: [id number] DOCUMENT ID: [id number] IVETTE PAZ MD at 1221 CC: [id number] DICTATION DATE: 02/18/19 1159 G[employer]ATIN PLANT SUPERVISOR: 02/18/19 1216 REG [facility] [address] [place] [address]
--- NOTE | 2019-02-18 17:33 | NUR ---
1340 RE: SUICIDE SCREEN. ON TODAYS ADMISSION THE SUICIDE SCREEN TRIGGERED A RESPONSE RELATED TO PAST SUICIDAL IDEATION. RECENTLY PT WAS EVALUATED BY BEHAVIORAL HERE IN [facility]PS FOR ANOTHER PROCEDURE AND NO F/U WAS INDICATED. PT STATES THERE HAVE BEEN NO CHANGES AND SHE IS NOT SUICIDAL AND IS READY TO GO HOME.
== END 2019-02-18 13:50 | disposition home or self-care (01) ==
LOC: D.OPS 07:39 → D.PAN 09:05 → D.OPS 10:15
PROVIDERS: Anesthesiology; ATTEND Urology
DX: N20.0 Calculus of kidney (principal)

== ENCOUNTER → 2019-03-02 09:50 | Outpatient (CLI) | payer MEDICAID ==
[2019-02-18 08:32] VITALS: BMI 29.1
== END | disposition home or self-care (01) ==
LOC: D.MRI 09:00
PROVIDERS: ATTEND Urology
DX: M54.6 Pain in thoracic spine (principal)

== ENCOUNTER → 2019-03-04 09:56 | Outpatient (CLI) | payer MEDICAID ==
[2019-02-18 08:32] VITALS: BMI 29.1
== END | disposition home or self-care (01) ==
LOC: D.RAD 09:56
PROVIDERS: ATTEND Urology
DX: Z51.89 Encounter for other specified aftercare (principal)

== ENCOUNTER 2019-06-15 10:49 | Emergency (ER) | payer MEDICAID ==
[~2019-06-15] VITALS: Ht 157.5 cm; Wt 78.9 kg
[2019-06-15 10:56] VITALS: Ht 157.5 cm; Wt 78.9 kg
[2019-06-15] MEDS ORDERED: LANTUS SQ (11:04)
[2019-06-15 11:20] LABS: CALC OSMOLALITY 284 mosm/kg (275-300); CHLORIDE - SERUM 106 mmol/L (98-107); CREATININE - SERUM 0.9 mg/dL (0.6-1.3); GLUCOSE 138 mg/dL (74-106); POTASSIUM - SERUM 4.1 mmol/L (3.5-5.1); SODIUM 142 mmol/L (136-145); UREA NITROGEN 12 mg/dL (7-18); eGFR NON AFRICAN AMERICAN 70 mL/min (90-120)
[2019-06-15 11:29] LABS: BASOPHILS 0.3 % (0-2); EOSINOPHILS 3.8 % (0-7); HEMOGLOBIN 13.2 g/dL (12-16); IMMATURE GRANULOCYTES 0.5 % (0-5); LYMPHOCYTES 41.9 % (15-50); MCH 29.4 pg (26.0-34.0); MCHC 33.8 g/dL (31.0-37.0); MCV 86.9 fL (80.0-100.0); MEAN PLATELET VOLUME 8.6 fL (7.4-10.4); MONOCYTES 7.2 % (2-11); NEUTROPHILS 46.3 % (40-80); RBC 4.49 10x6/uL (4.00-5.40); RDW 13.1 % (11.5-14.5); WBC 6.3 10x3/uL (4.8-10.8)
[2019-06-15 11:34] LABS: ALBUMIN 3.3 g/dL (3.4-5.0); ALKALINE PHOSPHATASE 95 U/L (46-116); ALT (SGPT) 17 U/L (10-68); BILIRUBIN - TOTAL 0.28 mg/dL (0.2-1.3); CKMB 0.9 U/L (0.0-3.6); CREATINE KINASE 32 UL (21-215); PRO BNP 32 pg/mL (0-125); PROTEIN - SERUM 6.9 g/dL (6.4-8.2); TROPONIN-I < 0.017 ng/mL (0.000-0.060)
[2019-06-15 11:37] LABS: APTT 25.3 SECONDS (22.8-39.4); INR 0.98 (0.85-1.17)
[2019-06-15 11:44] LABS: PLATELET COUNT 205 10x3/uL (130-400)
[2019-06-15 11:59] VITALS: BP 140/89
== END 2019-06-15 12:14 | disposition home or self-care (01) ==
LOC: D.ER 10:49
PROVIDERS: Family Medicine
DX: F41.9 Anxiety disorder, unspecified (principal); E11.9 Type 2 diabetes mellitus without complications; J44.9 Chronic obstructive pulmonary disease, unspecified; K21.9 Gastro-esophageal reflux disease without esophagitis; Z79.84 Long term (current) use of oral hypoglycemic drugs

== ENCOUNTER → 2019-06-30 09:04 | Outpatient (CLI) | payer MEDICAID ==
[2019-06-15 10:56] VITALS: BMI 29.1
[~2019-06-30 09:04] MED LIST changes: +LANTUS SQ
[2019-06-30 09:48] LABS: BASOPHILS 0.1 % (0-2); EOSINOPHILS 0.3 % (0-7); HEMATOCRIT 43.2 % (36.0-48.0); HEMOGLOBIN 14.9 g/dL (12-16); IMMATURE GRANULOCYTES 0.8 % (0-5); LYMPHOCYTES 20.9 % (15-50); MCH 29.7 pg (26.0-34.0); MCHC 34.5 g/dL (31.0-37.0); MCV 86.1 fL (80.0-100.0); MEAN PLATELET VOLUME 8.8 fL (7.4-10.4); MONOCYTES 5.9 % (2-11); PLATELET COUNT 225 10x3/uL (130-400); RBC 5.02 10x6/uL (4.00-5.40); RDW 13.2 % (11.5-14.5); WBC 11.2 10x3/uL (4.8-10.8)
[2019-06-30 10:05] LABS: ALBUMIN 3.4 g/dL (3.4-5.0); ANION GAP 14.7 mmol/L (8-16); BILIRUBIN - DIRECT 0.05 mg/dL (0.00-0.30); BILIRUBIN - INDIRECT 0.22 mg/dL (0.00-1.00); BILIRUBIN - TOTAL 0.27 mg/dL (0.2-1.3); CALCIUM 9.1 mg/dL (8.5-10.1); CARBON DIOXIDE 25.2 mmol/L (21.0-32.0); CREATININE - SERUM 0.9 mg/dL (0.6-1.3); POTASSIUM - SERUM 3.9 mmol/L (3.5-5.1); PROTEIN - SERUM 7.6 g/dL (6.4-8.2)
[2019-06-30 11:32] LABS: ERYTHROCYTE SEDIMENTATION RATE 5 mm/hr (0-30)
== END | disposition home or self-care (01) ==
LOC: D.LAB 09:04 → D.CT 09:30
PROVIDERS: ATTEND Internal Medicine Gastroenterology
DX: R10.11 Right upper quadrant pain (principal); K59.00 Constipation, unspecified; K57.30 Diverticulosis of large intestine without perforation or abscess without bleeding

== ENCOUNTER → 2019-07-22 08:38 | Outpatient (CLI) | payer MEDICAID ==
[2019-06-15 10:56] VITALS: BMI 29.1
--- NOTE | 2019-07-26 11:54 | EC ---
PATIENT:PRABHU BRUNO DATE OF SERVICE: 07/22/19 SEX: F MEDICAL RECORD: [id number] DATE OF : 69 LOCATION:D.[facility] AGE OF PATIENT: 54 ADMISSION DATE: 07/22/19 REFERRING PHYSICIAN: INTERPRETING PHYSICIAN: GLORIA JETT MD ECHOCARDIOGRAM REPORT ECHO CHARGES 4 ECHO COMPLETE Date: 07/22/19 CLINICAL DIAGNOSIS: ASTHMA/DYSPNEA/COPD HX TACHYCARDIA ECHOCARDIOGRAPHIC MEASUREMENTS (adult normal given) AC root (d.<3.7cm) 2.7 cm LV Septum d (<1.2 cm> 1.0 cm Valve Excursion 1.6 cm LV Septum (systole) 1.4 cm Left Atria (s.<4.0cm> 3.1 cm LVPW d(<1.2cm) 1.2 cm RV (d.<2.3cm) 2.7 cm LVPW (sytole) 1.5 cm LV diastole(<5.6CM) 3.9 cm MV E-F(>70mm/sec) cm LV systole 2.7 cm LVOT Diameter 1.8 cm MV exc.(>10mm) cm Est.ejection fraction (50-75%) % DOPPLER: LVIT cm/sec A 41.0 cm/sec E 102.0 cm/sec LA cm/sec RVSP 18 mmHg LVOT 102 cm/sec AOP1/2T m/s Asc. Ao 123 cm/sec RVOT 90 cm/sec RA cm/sec PA 121 cm/sec AV Gradient Peak 6.07 mmHg AV Mean 2.82 mmHg AV Area 2.1 cm MV Gradient Peak 5.94 mmHg MV Mean 1.97 mmHg MV Area cm COMMENTS: Record Tabulating Clerk: Claire SORTO Forest Technician: 1 Dr. Jett TAPE# PACS Pericardial Effusion N DATE OF SERVICE: FINDINGS: 1. Left ventricular chamber size is within normal limits. Left ventricular systolic function is normal. Overall ejection fraction estimated at 60%. 2. Left atrium, right atrium, right ventricular chamber sizes are within normal limits. 3. Valvular structures have normal structure and motion. 4. Doppler interrogation reveals no significant valvular insufficiency or stenosis. Pulmonary systolic pressure estimated at 18 mmHg. ECHOCARDIOGRAM REPORT [id number] PRABHU BRUNO 5. No evidence of pericardial effusion or left ventricular thrombus. TRANSINT:[id number] Voice Confirmation ID: [id number] DOCUMENT ID: [id number] GLORIA JETT MD at 1154 CC: [id number] DICTATION DATE: 07/23/19 1003 CIGARETTE MACHINES MECHANIC: 07/23/19 1229 [facility] CLI 07/22/19 [place] [id number] [place] [id number]
== END | disposition home or self-care (01) ==
LOC: D.LAB 07-14 09:45 → D.RT 07-14 10:00 → D.ECHO 08:38
PROVIDERS: ATTEND Internal Medicine Pulmonary Disease
DX: J45.909 Unspecified asthma, uncomplicated (principal); R06.00 Dyspnea, unspecified

== ENCOUNTER 2019-08-05 12:43 | Emergency (ER) | payer MEDICAID ==
[~2019-08-05] VITALS: Ht 157.5 cm; Wt 86.4 kg
[2019-08-05 13:01] VITALS: Ht 157.5 cm; Wt 86.4 kg
[2019-08-05 13:24] LABS: BASOPHILS 0.1 % (0-2); EOSINOPHILS 2.1 % (0-7); HEMATOCRIT 43.2 % (36.0-48.0); HEMOGLOBIN 14.9 g/dL (12-16); IMMATURE GRANULOCYTES 0.1 % (0-5); LYMPHOCYTES 29.1 % (15-50); MCH 29.2 pg (26.0-34.0); MCHC 34.5 g/dL (31.0-37.0); MCV 84.5 fL (80.0-100.0); MEAN PLATELET VOLUME 9.2 fL (7.4-10.4); MONOCYTES 5.7 % (2-11); NEUTROPHILS 62.9 % (40-80); PLATELET COUNT 195 10x3/uL (130-400); RBC 5.11 10x6/uL (4.00-5.40); RDW 12.9 % (11.5-14.5); WBC 7.2 10x3/uL (4.8-10.8)
[2019-08-05 13:38] LABS: CALC OSMOLALITY 285 mosm/kg (275-300); CALCIUM 9.4 mg/dL (8.5-10.1); CARBON DIOXIDE 23.4 mmol/L (21.0-32.0); CHLORIDE - SERUM 105 mmol/L (98-107); POTASSIUM - SERUM 4.4 mmol/L (3.5-5.1); PROTIME 13.2 SECONDS (11.6-15.0); SODIUM 137 mmol/L (136-145); UREA NITROGEN 15 mg/dL (7-18); eGFR NON AFRICAN AMERICAN 62 mL/min (90-120)
[2019-08-05 13:39] LABS: D-DIMER-QUANTITATIVE < 0.27 ug/mLFEU (0.20-0.54)
[2019-08-05 13:40] LABS: GLUCOSE 305 mg/dL (74-106)
[2019-08-05 13:57] LABS: ALBUMIN 3.7 g/dL (3.4-5.0); ALKALINE PHOSPHATASE 121 U/L (30-120); ALT (SGPT) 20 U/L (10-68); BILIRUBIN - TOTAL 0.51 mg/dL (0.2-1.3); LIPASE 85 U/L (73-393); PRO BNP 14 pg/mL (0-125); PROTEIN - SERUM 7.4 g/dL (6.4-8.2); THYROID STIMULATING HORMONE 2.06 uIU/mL (0.36-3.74); TROPONIN-I < 0.017 ng/mL (0.000-0.060)
[2019-08-05 15:53] LABS: BILIRUBIN NEGATIVE (NEGATIVE); GLUCOSE 1000 mg/dL (NEGATIVE); KETONE NEGATIVE (NEGATIVE); NITRITE NEGATIVE (NEGATIVE); UROBILINOGEN NORMAL (NORMAL)
[2019-08-05 16:00] VITALS: BP 100/64
== END 2019-08-05 16:15 | disposition home or self-care (01) ==
LOC: D.ER 12:43
PROVIDERS: Family Medicine
DX: R07.9 Chest pain, unspecified (principal); R10.2 Pelvic and perineal pain; E11.9 Type 2 diabetes mellitus without complications; Z79.84 Long term (current) use of oral hypoglycemic drugs; K74.60 Unspecified cirrhosis of liver; J44.9 Chronic obstructive pulmonary disease, unspecified; K21.9 Gastro-esophageal reflux disease without esophagitis

== ENCOUNTER 2019-08-25 09:00 | Outpatient (CLI) | payer BC ==
[2019-08-05 13:01] VITALS: BMI 34.8
== END 2019-08-25 10:00 | disposition home or self-care (01) ==
LOC: D.MAMMO 09:00
PROVIDERS: ATTEND Family Medicine Adult Medicine
DX: N63.0 Unspecified lump in unspecified breast (principal)

== ENCOUNTER 2019-10-07 14:52 | Emergency (ER) | payer MEDICAID ==
[~2019-10-07] VITALS: Ht 157.5 cm; Wt 86.4 kg
[2019-10-07 15:01] VITALS: Ht 157.5 cm; Wt 86.4 kg
[2019-10-07 15:31] LABS: BASOPHILS 0.1 % (0-2); EOSINOPHILS 2.9 % (0-7); HEMATOCRIT 43.9 % (36.0-48.0); HEMOGLOBIN 14.6 g/dL (12-16); IMMATURE GRANULOCYTES 0.4 % (0-5); LYMPHOCYTES 23.6 % (15-50); MCH 28.5 pg (26.0-34.0); MCHC 33.3 g/dL (31.0-37.0); MCV 85.6 fL (80.0-100.0); MEAN PLATELET VOLUME 8.7 fL (7.4-10.4); PLATELET COUNT 170 10x3/uL (130-400); RBC 5.13 10x6/uL (4.00-5.40); WBC 8.2 10x3/uL (4.8-10.8)
[2019-10-07 15:44] LABS: CALC OSMOLALITY 281 mosm/kg (275-300); CALCIUM 8.8 mg/dL (8.5-10.1); CARBON DIOXIDE 22.2 mmol/L (21.0-32.0); CHLORIDE - SERUM 105 mmol/L (98-107); POTASSIUM - SERUM 3.9 mmol/L (3.5-5.1); SODIUM 139 mmol/L (136-145); UREA NITROGEN 17 mg/dL (7-18); eGFR NON AFRICAN AMERICAN 62 mL/min (90-120)
[2019-10-07 15:45] LABS: GLUCOSE 139 mg/dL (74-106)
[2019-10-07 15:48] LABS: ALBUMIN 3.8 g/dL (3.4-5.0); ALKALINE PHOSPHATASE 97 U/L (30-120); ALT (SGPT) 25 U/L (10-68); AMYLASE - SERUM 68 U/L (25-115); BILIRUBIN - TOTAL 0.37 mg/dL (0.2-1.3); LIPASE 56 U/L (73-393); PROTEIN - SERUM 7.7 g/dL (6.4-8.2)
[2019-10-07 15:50] LABS: TROPONIN-I < 0.017 ng/mL (0.000-0.060)
[2019-10-07 19:00] LABS: BILIRUBIN NEGATIVE (NEGATIVE); GLUCOSE NEGATIVE (NEGATIVE); KETONE NEGATIVE (NEGATIVE); NITRITE NEGATIVE (NEGATIVE); SPECIFIC GRAVITY 1.015 (1.005-1.020); UROBILINOGEN NORMAL (NORMAL)
[2019-10-07 19:06] VITALS: BP 126/82
== END 2019-10-07 19:07 | disposition home or self-care (01) ==
LOC: D.ER 14:52
PROVIDERS: Family Medicine
DX: R10.11 Right upper quadrant pain (principal); E11.9 Type 2 diabetes mellitus without complications; J44.9 Chronic obstructive pulmonary disease, unspecified; K21.9 Gastro-esophageal reflux disease without esophagitis; Z79.84 Long term (current) use of oral hypoglycemic drugs

== ENCOUNTER → 2019-10-12 15:51 | Outpatient (CLI) | payer MEDICAID ==
[2019-10-07 15:01] VITALS: BMI 34.8
== END | disposition home or self-care (01) ==
LOC: D.RAD 15:51
PROVIDERS: ATTEND Surgery
DX: M54.12 Radiculopathy, cervical region (principal); M54.2 Cervicalgia; M54.17 Radiculopathy, lumbosacral region; M54.5 Low back pain; G89.4 Chronic pain syndrome; Z79.891 Long term (current) use of opiate analgesic; Z79.899 Other long term (current) drug therapy

== ENCOUNTER → 2020-08-21 15:54 | Outpatient (CLI) | payer BC ==
[2019-10-07 15:01] VITALS: BMI 34.8
== END | disposition home or self-care (01) ==
LOC: D.LAB 15:54
PROVIDERS: ATTEND Internal Medicine Pulmonary Disease
DX: Z53.9 Procedure and treatment not carried out, unspecified reason (principal)

== ENCOUNTER → 2020-10-09 14:31 | Outpatient (CLI) | payer MEDICAID ==
[2019-10-07 15:01] VITALS: BMI 34.8
== END | disposition home or self-care (01) ==
LOC: D.LAB 14:31
PROVIDERS: ATTEND Internal Medicine Pulmonary Disease
DX: Z11.52 Encounter for screening for COVID-19 (principal)

== ENCOUNTER → 2020-10-13 14:45 | Outpatient (CLI) | payer BC ==
[2019-10-07 15:01] VITALS: BMI 34.8
== END | disposition home or self-care (01) ==
LOC: D.LAB 08-25 08:00 → D.RT 08-25 09:00 → D.LAB 08-25 09:00
PROVIDERS: ATTEND Internal Medicine Pulmonary Disease
DX: J44.9 Chronic obstructive pulmonary disease, unspecified (principal)

== ENCOUNTER → 2020-11-15 12:13 | Outpatient (CLI) | payer BC ==
[2019-10-07 15:01] VITALS: BMI 34.8
== END | disposition home or self-care (01) ==
LOC: D.RAD 12:13
PROVIDERS: ATTEND Internal Medicine Gastroenterology
DX: R10.84 Generalized abdominal pain (principal); R13.10 Dysphagia, unspecified